=== PATIENT | male | born 1950 | race Two or more races ===

== ENCOUNTER 2021-03-27 12:46 | Emergency (ER) | payer MEDICAID, OTHER ==
[~2021-03-27] VITALS: Ht 182.9 cm; Wt 57.0 kg
[2021-03-27 14:45] VITALS: BP 138/77
[2021-03-27] MEDS ORDERED: ACETAMINOPHEN 500MG TABLET PO ONE (15:45)
[2021-03-27] MEDS ORDERED: MELO-104 MT (16:00)
[2021-03-27] MEDS ORDERED: ACET-2708 MT (16:00)
== END 2021-03-27 16:37 | disposition home or self-care (01) ==
LOC: ER 12:46
DX: M19.042 Primary osteoarthritis, left hand (principal); M19.041 Primary osteoarthritis, right hand
CPT/HCPCS: 73130; 99283